=== PATIENT | female | born 1995 | race Caucasian/White ===

== ENCOUNTER → 2019-09-02 | Outpatient (CLI) | payer OTHER ==
[2019-09-02] VITALS (12 sets, daily range): BP systolic 95–121; BP diastolic 52–76
--- NOTE | 2019-09-21 14:03 | PROC ---
[address] [address] PROCEDURE REPORT Name: VISHAL YA Jose Room: [facility]#: [id number] Admission: 09/02/19 Attend Phys: Junior Huynh MD, Discharge: Date of : 89 Report #: [id number] THIS REPORT FOR: //name// cc: Katarina Dobson Jacqueline D. FNP THIS REPORT FOR: //name// CC: Darius Huynh MD [facility] Junior Dobson DATE OF SERVICE: 09/02/2019 TITLE OF PROCEDURE: Head upright tilt-table test using sublingual nitroglycerin. PROCEDURE: The patient was brought to the cardiac catheterization holding area in the fasting state. The patient was placed supine on the tilt table test. Blood pressure and ECG monitoring recorder. RESULTS: The patient had a baseline blood pressure of 115/73 with a pulse of 93 and she was in a sinus rhythm. The patient was then placed in the 70 degrees head upright position for 20 minutes. There was no significant change in blood pressure, no heart rate during this time. The patient remained in sinus rhythm. However, after 20 minutes, the patient did develop sinus tachycardia at 104 beats per minute and blood pressure 114/75. The patient remained asymptomatic at this time. The patient was then administered sublingual nitroglycerin after 20 minutes in the head upright position. The patient denied any complaints at that time. Ten minutes later, the patient had a blood pressure of 95/52 with pulse of 78. She remained asymptomatic. Twenty minutes after sublingual nitroglycerin, the blood pressure was 98/60 with a pulse of 63 and she remained in sinus rhythm. The patient was then terminated from the study and was placed back in the supine position. IMPRESSION: 1. Negative head upright tilt-table testing for neurocardiogenic syncope. 2. There was neither a cardio inhibitory nor vasodepressor response to head upright table testing. <ELECTRONICALLY SIGNED> By: Wallace Groves MD, FACC 09/21/19 1403 [id number] Groves MD, FACC /nt
== END | disposition home or self-care (01) ==
LOC: M.CL 08:14
DX: R55 Syncope and collapse (principal)

== ENCOUNTER 2020-01-08 01:40 | Emergency (ER) | payer OTHER ==
[~2020-01-08] VITALS: Ht 149.9 cm; Wt 42.6 kg
[2020-01-08] MEDS ORDERED: NUVARING VAGIN1 EACH VAG (01:53)
[2020-01-08] MEDS ORDERED: PREDNISONE50 MG PO (02:44)
[2020-01-08 03:01] VITALS: BP 112/64
== END 2020-01-08 03:01 | disposition home or self-care (01) ==
LOC: M.ERS 01:40
DX: L25.9 Unspecified contact dermatitis, unspecified cause (principal); Z88.0 Allergy status to penicillin; Z88.1 Allergy status to other antibiotic agents; Z88.2 Allergy status to sulfonamides; Z88.8 Allergy status to other drugs, medicaments and biological substances